=== PATIENT | female | born 1995 | race Caucasian/White ===

== ENCOUNTER 2017-01-22 10:07 | Emergency (ER) | payer OTHER ==
--- NOTE | 2017-01-22 10:19 | ER Document Report ---
ED Medical Screen (RME) - General Stated Complaint: POSSIBLE SEIZURE Time seen by provider: 10:15 Mode of Arrival: Wheelchair Information source: Patient, Friend Notes: 21 year old female presents to ED for possible seizure in the car with her sister. The patient states she felt a little nauseated and then felt a pressure in her throat, a little lightheaded then the sister states that she looked like she jung her arms and legs up and her eyes were wide open and almost rolled up was sweaty. Upper right back and headache is hurting now that was not hurting before this incident. Last menstrual period 01/09/2016 I have greeted and performed a rapid initial assessment of this patient. A comprehensive ED assessment and evaluation of the patient, analysis of test results and completion of medical decision making process will be conducted by an additional ED providers. Physical Exam - Vital signs Vitals: Temp Pulse Resp BP Pulse Ox 98.7 F 77 14 119/65 100 01/22/17 10:13 01/22/17 10:13 01/22/17 10:13 01/22/17 10:13 01/22/17 10:13 Course - Vital Signs Vital signs: Temp Pulse Resp BP Pulse Ox 98.7 F 77 14 119/65 100 01/22/17 10:13 01/22/17 10:13 01/22/17 10:13 01/22/17 10:13 01/22/17 10:13
[2017-01-22 10:44] LABS: ABSOLUTE LYMPHOCYTES (AUTO) 1.2 10^3/uL (0.5-4.7); ABSOLUTE MONOCYTES (AUTO) 0.6 10^3/uL (0.1-1.4); ABSOLUTE NEUT (AUTO) 8.2 10^3/uL (1.7-8.2); BASOPHILS % (AUTO) 0.4 % (0-2); EOSINOPHILS % (AUTO) 0.4 % (0-6); HEMATOCRIT 43.4 % (36.0-47.0); HEMOGLOBIN 14.7 g/dL (12.0-15.5); HGB HCT DIFFERENCE 0.7; MEAN CORPUSCULAR HEMOGLOBIN 31.4 pg (27.0-33.4); MEAN CORPUSCULAR HGB CONC 33.9 g/dL (32.0-36.0); MEAN CORPUSCULAR VOLUME 92 fl (80-97); RED CELL DISTRIBUTION WIDTH 13.2 % (11.5-14.0); SEGMENTED NEUTROPHILS % (AUTO) 81.2 % (42-78); WHITE BLOOD COUNT 10.1 10^3/uL (4.0-10.5)
[2017-01-22 10:51] LABS: APPEARANCE,URINE CLOUDY; BILIRUBIN,URINE NEGATIVE (NEGATIVE); GLUCOSE, URINE NEGATIVE (NEGATIVE); KETONES,URINE NEGATIVE (NEGATIVE); LEUKOCYTE ESTERASE,URINE SMALL (NEGATIVE); NITRITE,URINE NEGATIVE (NEGATIVE); PROTEIN,URINE 100 mg/dL (NEGATIVE); URINE SPECIFIC GRAVITY 1.021; UROBILINOGEN,URINE NEGATIVE mg/dL (<2.0)
[2017-01-22 11:14] LABS: ALANINE AMINOTRANSFERASE 25 U/L (9-52); ALBUMIN 4.5 g/dL (3.5-5.0); ALKALINE PHOSPHATASE 73 U/L (38-126); BILIRUBIN,TOTAL 1.4 mg/dL (0.2-1.3); BLOOD UREA NITROGEN 15 mg/dL (7-20); CARBON DIOXIDE 27 mmol/L (22-30); CREATININE RESULT 0.69 mg/dL (0.52-1.25); GLUCOSE 93 mg/dL (75-110); POTASSIUM 4.7 mmol/L (3.6-5.0); SODIUM 139.8 mmol/L (137-145); TOTAL PROTEIN 7.4 g/dL (6.3-8.2)
[2017-01-22 11:15] LABS: ASPARTATE AMINO TRANSFERASE 19 U/L (14-36); CALCIUM 10.3 mg/dL (8.4-10.2)
[2017-01-22 11:16] LABS: ANION GAP 7 (5-19); CHLORIDE 106 mmol/L (98-107)
--- NOTE | 2017-01-22 12:44 | ER Document Report ---
ED General - General Time seen by provider: 12:30 Mode of Arrival: Wheelchair Information source: Patient, Relative TRAVEL OUTSIDE OF THE [place] IN LAST 30 DAYS: No - HPI Onset: Other - see HPI note <NATALIE JUDGE - Last Filed: 01/24/17 01:22> <CLEMENT FERNANDEZ - Last Filed: 02/06/17 05:54> - General Chief Complaint: Probable Seizure Stated Complaint: POSSIBLE SEIZURE Notes: Patient is a 21 year old female presenting to the emergency department for syncope. Patient felt nauseated and some tightening in the throat. Patient told her sister that she wasn't feeling well. Patient's sister states that the patient grabbed her throat and then when into a convulsing state. Patient was not coherent during the event. Sister states that the event happened for about 3 minutes. Patient states that she felt sleepy, sore, and drowsy afterwards. Patient states that she has not had any food or anything to drink today. Patient has not had any previous seizures or seizure like activity. Patient had not had anything to eat or drink this morning. Patient states that she sometimes gets minor headaches about everyday over the past 2-3 years. Patient is here visiting from [place]. Patient also states that she sometimes has some tremors in her had. Patient is not on control and is not ; last menstrual period was 01/08/17. Patient states she is feeling stiff and sore now with some pressure in her head/headache. Patient has no known allergies. (NATALIE JUDGE) - Related Data Allergies/Adverse Reactions: No Known Allergies Allergy (Unverified 01/22/17 10:15) Home Medications: Current Home Medications No Home Medications 01/22/17 [History] Past Medical History - General Information source: Patient, Friend - Social History Smoking Status: Never Smoker Chew tobacco use (# tins/day): No Frequency of alcohol use: None Drug Abuse: None Family History: None Patient has suicidal ideation: No Patient has homicidal ideation: No Surgical Hx: Negative - Immunizations Hx Diphtheria, Pertussis, Tetanus Vaccination: No <NATALIE JUDGE - Last Filed: 01/24/17 01:22> Review of Systems - Review of Systems Constitutional: No symptoms reported EENT: No symptoms reported Cardiovascular: No symptoms reported Respiratory: No symptoms reported Gastrointestinal: No symptoms reported Genitourinary: No symptoms reported Female Genitourinary: No symptoms reported Musculoskeletal: No symptoms reported Skin: No symptoms reported Hematologic/Lymphatic: No symptoms reported Neurological/Psychological: See HPI, Seizure -: Yes All other systems reviewed and negative <LEEANNERUBYLINDANATALIE - Last Filed: 01/24/17 01:22> Physical Exam - Vital signs Interpretation: Normal - General General appearance: Appears well, Alert In distress: Mild - HEENT Head: Normocephalic, Atraumatic Eyes: Normal Pupils: PERRL Mucous membranes: Moist - Respiratory Respiratory status: No respiratory distress Chest status: Nontender Breath sounds: Normal Chest palpation: Normal - Cardiovascular Rhythm: Regular Heart sounds: Normal auscultation Murmur: No - Abdominal Inspection: Normal Distension: No distension Bowel sounds: Normal Tenderness: Nontender Organomegaly: No organomegaly - Back Back: Normal, Nontender - Extremities General upper extremity: Normal inspection, Normal ROM, Normal strength General lower extremity: Normal inspection, Normal ROM, Normal strength - Neurological Neuro grossly intact: Yes Cognition: Normal Orientation: AAOx4 Juanis Coma Scale Eye Opening: Spontaneous Grimes Coma Scale Verbal: Oriented Grimes Coma Scale Motor: Obeys Commands Grimes Coma Scale Total: 15 Speech: Normal - Psychological Associated symptoms: Normal affect, Normal mood - Skin Skin Temperature: Warm Skin Moisture: Dry <LEEANNERUBYNATALIE - Last Filed: 01/24/17 01:22> Course - Laboratory Result Diagrams: 01/22/17 10:25 01/22/17 10:25 <NATALIE JUDGE - Last Filed: 01/24/17 01:22> - Laboratory Result Diagrams: 01/22/17 10:25 01/22/17 10:25 <CLEMENT FERNANDEZ - Last Filed: 02/06/17 05:54> - Vital Signs Vital signs: Temp Pulse Resp BP Pulse Ox 98.4 F 88 18 109/59 L 100 01/22/17 15:02 01/22/17 15:02 01/22/17 15:02 01/22/17 15:02 01/22/17 15:02 - Laboratory Laboratory results interpreted by me: 01/22/17 01/22/17 01/22/17 10:25 10:25 10:25 Seg Neutrophils % 81.2 H Lymphocytes % 12.0 L Calcium 10.3 H Total Bilirubin 1.4 H Urine Protein 100 H Ur Leukocyte Esterase SMALL H Discharge <NATALIE JUDGE - Last Filed: 01/24/17 01:22> <CLEMENT FERNANDEZ - Last Filed: 02/06/17 05:54> - Discharge Clinical Impression: possible seizure Condition: Stable Disposition: HOME, SELF-CARE Additional Instructions: SYNCOPAL EPISODE: Syncope (fainting or near-fainting) can occur from many different health problems. Or it can be a simple fainting spell requiring no treatment. It is safe for you to go home, but further evaluation will likely be necessary. Your work-up may include tests for internal bleeding, heart disease, medication problems, or near-strokes. Tests are not always required, however, depending on the nature of your problem. The warning signs of an impending faint include: dizziness, lightheadedness , nausea, hot flashes, tingling, and weakness. If this happens, lay down and put your feet up, then wait until all of these symptoms have passed before standing up again. If these episodes become recurrent, or if you develop chest pain, heart palpitations, mental confusion, blurred vision, or headache, then you should call the physician, or go to the emergency room. Seizure You have had a seizure. Seizure disorders (epilepsy) of one sort or another affect about one out of 50 people. The seizure occurs because of abnormal electrical activity in the brain. Seizures may be due to drugs and alcohol, strokes, brain injury, or infection. In the most common form of epilepsy, no cause can be found. You will require further evaluation to determine the cause of your seizure, and to determine whether anti-seizure medication is required. This follow-up testing is important, so please call us if you encounter problems with scheduling of tests or appointments. YOU SHOULD NOT DRIVE until released to do so by your physician. The law requires that seizures be reported to the wagon driver salesperson's license bureau--a seizure while driving could be catastrophic. Call the doctor if seizures recur, or if you develop new symptoms such as fever, severe headache, stiff neck, confusion or increasing sleepiness, weakness or numbness, or visual problems. FOLLOW-UP CARE: If you have been referred to a physician for follow-up care, call the physician s office for an appointment as you were instructed or within the next two days. If you experience worsening or a significant change in your symptoms, notify the physician immediately or return to the Emergency Department at any time for re-evaluation. At this point we are uncertain whether you had a seizure or a syncopal event. Because she lived in [place] organ have a follow-up for recheck and reevaluation in 24 hours in the emergency department sooner for increasing worsening or new symptoms he'll need to call and get a follow-up appointment immediately in [place] with your primary care physician or you'll need to be evaluated for syncope including cardiac and neuro related. Return to the emergency department for increasing worsening or new symptoms Scribe Documentation - Scribe Written by Scrrajiv:: Natalie Judge 01/22/17 20:45 acting as scribe for :: Farhat <NATALIE JUDGE - Last Filed: 01/24/17 01:22>
[2017-01-22 15:03] VITALS: BP 109/59
--- NOTE | 2017-01-24 16:10 | EKG REPORT ---
SEVERITY:- NORMAL ECG - SINUS RHYTHM : Confirmed by: Amelia Braga MD 24-Jan-2017 16:08:18
== END 2017-01-22 15:03 | disposition home or self-care (01) ==
LOC: ER 10:07
DX: R55 Syncope and collapse (principal); M79.1 Myalgia; R51 Headache
CPT/HCPCS: 36415; 80053; 81001; 82962; 84703; 85025; 87086; 93005; 93010; 99285